=== PATIENT | female | born 1975 | race Caucasian/White ===

== ENCOUNTER 2023-10-04 14:54 | Outpatient (OUT) | payer OTHER, SELFPAY ==
--- NOTE | 2023-10-04 15:00 | CA_ITS ---
Patient Name: COLEMAN ESCOBEDO MR#: [id number] : 1975 Exam Date: 10/04/2023 Ordering Doctor: DR MIN NGUYỄN M.D. ECHOCARDIOGRAM REPORT PROCEDURE: CA ECHO DOPPLER COMPLETE INDICATIONS: Hypertrophic Cardiomyopathy COMPARISON: None. DESCRIPTION: COMPLETE ECHOCARDIOGRAM Real-time transthoracic echocardiography with 2D, M-mode, spectral and color flow Doppler performed. QUALITY: Technical quality was good. LEFT VENTRICLE: Normal chamber size. Mild concentric left ventricular hypertrophy. Global left ventricular systolic function is normal. LV EF: Estimated left ventricular ejection fraction is 55% DIASTOLIC: Normal diastolic function. ATRIAL SEPTUM: LEFT ATRIUM: Normal chamber size. RIGHT ATRIUM: Normal chamber size. RIGHT VENTRICLE: Normal chamber size. Normal right ventricular systolic function. TRICUSPID VALVE: Normal mobility and thickness. No stenosis with trivial regurgitation. No evidence of pulmonary hypertension. RVSP 27 mmHg MITRAL VALVE: Normal mobility and thickness. No evidence of mitral valve stenosis. There is no mitral annular calcification. No mitral regurgitation. AORTIC VALVE: Normal trileaflet appearance. No visible sclerosis. Normal leaflet mobility. No evidence of aortic valve stenosis. No aortic regurgitation. AORTIC ROOT: Normal diameter and appearance. PULMONIC VALVE: Normal thickness and mobility. No stenosis. Mild regurgitation. PERICARDIUM: No evidence of pericardial effusion. IVC: Collapses with inspirations. Normal size. PLEURA: CONCLUSION: 1. Mild concentric left ventricular hypertrophy with normal systolic function. LVEF is estimated at 55%. 2. Normal right ventricular size and systolic function. 3. No significant valvular dysfunction. 4. Normal diastolic function. Adult Echocardiography Procedure Report Left Ventricle LVEDD (3.7 - 5.6 cm): 4.45 cm LVESD (2.2 - 4.0 cm): 3.29 cm LVIVS thickness (0.6 - 1.2 cm): 1.14 cm LVPW thickness (0.5 - 1.0 cm): 1.13 cm e': 0.09 m/s E - e': 10.51 LVOT Max Gradient: 3.76 mm[Hg] LVOT Area (cm2): 0.97 m/s Peak Velocity (LVOT): 0.97 m/s Mean Velocity (LVOT): 0.67 m/s LVOT Diameter 2.02 cm Left Ventricular Ejection Fraction: 55 % Left Atrium LA Volume Index (2D A2C): 36.11 ml/m2 Left Atrium Systolic Dimension: 4.32 cm Mitral Valve MV E to A Ratio: 0.93 Mitral Valve A-Wave Peak Velocity: 1.02 m/s Mitral Valve E-Wave Peak Velocity: 0.95 m/s Right Ventricle RV Internal Diastolic Dimension: 3.23 cm Aorta AO Root Diam: 3.11 cm Ascending Ao Diam: 2.53 cm Aortic Valve AoV Area (Peak Zeb): 1.85 cm2, 1.85 cm2 AoV Area (VTI): 1.88 cm2, 1.88 cm2 Peak Velocity(Antegrade Flow): 1.67 m/s Peak Gradient(Antegrade Flow): 11.22 mm[Hg] Mean Velocity(Antegrade Flow): 1.08 m/s Mean Gradient(Antegrade Flow): 5.31 mm[Hg] Velocity Time Integral: 31.87 cm Tricuspid Valve Peak Velocity (Regurgitant Flow): 2.46 m/s, 2.01 m/s Pulmonic Valve Mean Gradient: 5.09 mm[Hg], 5.60 mm[Hg] Mean Velocity: 1.05 m/s, 1.11 m/s Peak Velocity: 1.59 m/s Peak Gradient: 10.16 mm[Hg], 10.16 mm[Hg] Right Atrium Right Atrium Systolic Pressure: 39.41 ml, 39.41 ml Dictated by: Jarret Atwood M.D. on 10/05/2023 at 18:34 Approved by: Jarret Atwood M.D. on 10/05/2023 at 18:37
== END 2023-10-04 14:55 | disposition home or self-care (01) ==
LOC: CARD 14:57
PROVIDERS: Visit Provider Internal Medicine Interventional Cardiology
DX: I42.9 Cardiomyopathy, unspecified (principal); R06.09 Other forms of dyspnea
CPT/HCPCS: 93306; 93356